=== PATIENT | male | born 1955 | race Caucasian/White ===

== ENCOUNTER 2025-08-04 08:39 | Outpatient (CLI) | payer OTHER, MEDICAID ==
[~2025-08-04] VITALS: Ht 186.1 cm; Wt 99.8 kg
[2025-08-04 09:13] LABS: ABG BASE EXCESS 0.0 mmol/L (-2.0-3.0); ABG HCO3 25.2 mmol/L (21.0-28.0); ABG OXYGEN SATURATION 94.5 % (94.0-98.0); ABG PCO2 (T) 42.8 mmHg (35.0-48.0); ABG PH (T) 7.388 (7.350-7.450); ABG PO2 (T) 76.2 mmHg (83.0-108.0); ALLEN'S TEST POSITIVE; FCOHb 1.8 % (0.5-1.5); FHHb 5.4 % (0.0-5.0); FIO2 21.0 mmHg/%; FMetHb 0.3 % (0.0-1.5); FO2Hb 92.5 % (94.0-98.0); MODE ROOM AIR; PATIENT TEMPERATURE 37.0; TOTAL HEMOGLOBIN 15.6 G/dl (13.5-17.5)
[2025-08-04] MEDS: albuterol 2.5 MG/3 ML nebule NEB ONE (09:52)
[2025-08-04 10:04] VITALS: PULSE 87; RESP 16; O2SAT 92
[2025-08-04 10:16] VITALS: PULSE 88; RESP 16
--- NOTE | 2025-08-04 11:31 | PROCEDURE NOTE - Respiratory ---
Procedure Note-Respiratory Providers to Copies To 1: SARA FERNANDES MD Procedure Name: This is a complete pulmonary function study dated August 04, 2025. Hemoglobin measurement was done as part of the study. There was also a room air blood gas obtained from this patient on the same date. Spirometry measurements: The forced vital capacity is normal. The FEV1 is significantly reduced. The FEV1 ratio is also reduced. The expiratory flow rate measurements are reduced. After inhaled bronchodilator was administered, there is very small improvement in some of the flow rate measurements. Lung volume measurements: The total lung capacity is in the upper range of normal. The functional residual capacity is normal. There is elevation of the residual volume. Lung diffusion measurement: The DLCO is moderately reduced. The KVO measurement is reduced as well as the alveolar volume measurement is reduced. It is noted that the hemoglobin measurement is normal. Airways resistance: The airway resistance is not elevated. Conclusion: This study is abnormal. There is moderately severe obstructive ventilatory defect. The patient shows only very slight improvement with inhaled bronchodilator. The lung diffusion capacity is significantly depressed. 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 We have no previous studies for comparison. A blood gas was drawn from this patient while the patient was breathing ambient air. The blood pH is normal. The pCO2 is normal. There is mild room air hypoxemia with the room air PO2 measuring at 76 mmHg. JAM DEL CASTILLO MD Aug 04, 2025 11:31
== END 2025-08-04 23:59 | disposition home or self-care (01) ==
LOC: RT 08:39
PROVIDERS: ATTEND Surgery
DX: J98.4 Other disorders of lung (principal)
CPT/HCPCS: 36600; 82803; 85018; 94060; 94727; 94729; 94760